=== PATIENT | female | born 1935 | race Caucasian/White ===

== ENCOUNTER 2018-04-27 12:17 | Emergency (ER) | payer MEDICARE ==
--- NOTE | 2018-04-27 13:51 | ED ---
General Adult HPI - General Chief complaint: Weakness Stated complaint: Weakness, Fall Time Seen by Provider: 04/27/18 13:31 Source: patient, family, RN notes reviewed Mode of arrival: ambulatory Limitations: no limitations - History of Present Illness Initial comments: Patient is a pleasant 82-year-old female presenting to the emergency department with frequent falls. Falls have been occurring over the past couple months, more so this past week. Patient got up from standing around 1 week ago and noticed her left foot wasn't working as well. This has been persistent since that time. Patient did dislocate her shoulder approximately 6 weeks ago and had that reduced. Patient does have occasional discomfort in that region. No discomfort at this time. Patient did have some sacral discomfort previously however none at this time. No confusion. Patient did have dark stools this morning. - Related Data Home Medications Medication Instructions Recorded Confirmed Atorvastatin [Lipitor] 10 mg PO HS 04/27/18 04/27/18 Folic Acid 1 mg PO DAILY 04/27/18 04/27/18 Losartan Potassium [Cozaar] 50 mg PO DAILY 04/27/18 04/27/18 Methotrexate Sodium [Methotrexate] 12.5 mg PO TU 04/27/18 04/27/18 amLODIPine [Norvasc] 10 mg PO DAILY 04/27/18 04/27/18 Previous Rx's Medication Instructions Recorded Azithromycin [Zithromax Z-pack] 250 mg PO DIRECTED #6 tab 04/27/18 Allergies Allergy/AdvReac Type Severity Reaction Status Date / Time Sulfa (Sulfonamide Allergy Rash/Hives Verified 04/27/18 13:53 Antibiotics) Review of Systems ROS Statement: Those systems with pertinent positive or pertinent negative responses have been documented in the HPI. ROS Other: All systems not noted in ROS Statement are negative. Constitutional: Denies: fever Eyes: Denies: eye pain ENT: Denies: ear pain Respiratory: Denies: cough Cardiovascular: Denies: chest pain Endocrine: Denies: fatigue Gastrointestinal: Denies: abdominal pain Genitourinary: Denies: dysuria Musculoskeletal: Reports: as per HPI Skin: Denies: rash Neurological: Reports: as per HPI Past Medical History Past Medical History: Hypertension History of Any Multi-Drug Resistant Organisms: None Reported Past Surgical History: No Surgical Hx Reported Past Psychological History: No Psychological Hx Reported Smoking Status: Never smoker Past Alcohol Use History: Rare Past Drug Use History: None Reported General Exam Limitations: no limitations General appearance: alert, in no apparent distress Head exam: Present: atraumatic, normocephalic Eye exam: Present: normal appearance, PERRL, EOMI. Absent: nystagmus ENT exam: Present: normal oropharynx Neck exam: Present: normal inspection. Absent: tenderness Respiratory exam: Present: normal lung sounds bilaterally Cardiovascular Exam: Present: regular rate, normal rhythm Expanded Peripheral pulses: 2+: Radial (R), Radial (L), Posterior Tibialis (R), Posterior Tibialis (L), Dorsalis Pedis (R), Dorsalis Pedis (L) GI/Abdominal exam: Present: soft. Absent: distended, tenderness Extremities exam: Present: normal inspection, full ROM. Absent: tenderness Neurological exam: Present: alert, oriented X3, CN II-XII intact Expanded Neurological exam: Present: protecting the airway Patient oriented to: Present: person, place, time Speech: Present: fluid speech Cranial nerves: EOM's Intact: Normal Sensory exam: Upper Extremity Light Touch: Normal, Lower Extremity Light Touch: Normal Motor strength exam: RUE: 5, LUE: 5, RLE: 5, LLE: 4 (Patient has weakness with left foot dorsiflexion only. No weakness with leg lift or plantar flexion) Eye Response: (4) open spontaneously Motor Response: (6) obeys commands Verbal Response: (5) oriented Psychiatric exam: Present: normal affect, normal mood Skin exam: Present: normal color Course Vital Signs 04/27/18 04/27/18 04/27/18 12:22 13:50 14:59 Temperature 98.2 F Pulse Rate 89 74 70 Respiratory 18 15 18 Rate Blood Pressure 157/76 130/71 139/75 O2 Sat by Pulse 98 95 97 Oximetry EKG Findings - EKG Comments: EKG Findings:: Normal sinus rhythm 78. RI 176. QRS 88. QT 368. QTC 419. Normal axis. LVH. No acute ST change. Medical Decision Making - Medical Decision Making Case was discussed with Dr. Allan who felt patient could be managed as an outpatient secondary to symptoms present for the past week. Patient reevaluated and updated. Patient states she does have an appointment tomorrow with orthopedics and will keep this. Patient is also advised to follow-up with her primary care physician. Patient will be treated for possible pneumonia and is advised will also need repeat follow-up chest x-ray. - Lab Data Result diagrams: 04/27/18 13:15 04/27/18 13:15 Lab Results 04/27/18 04/27/18 04/27/18 Range/Units 13:15 13:15 13:15 WBC 14.3 H (3.8-10.6) k/uL RBC 4.45 (3.80-5.40) m/uL Hgb 12.5 (11.4-16.0) gm/dL Hct 39.1 (34.0-46.0) % MCV 87.9 (80.0-100.0) fL MCH 28.1 (25.0-35.0) pg MCHC 32.0 (31.0-37.0) g/dL RDW 16.1 H (11.5-15.5) % Plt Count 328 (150-450) k/uL Neutrophils % 87 % Lymphocytes % 6 % Monocytes % 5 % Eosinophils % 1 % Basophils % 0 % Neutrophils # 12.5 H (1.3-7.7) k/uL Lymphocytes # 0.8 L (1.0-4.8) k/uL Monocytes # 0.8 (0-1.0) k/uL Eosinophils # 0.1 (0-0.7) k/uL Basophils # 0.0 (0-0.2) k/uL Anisocytosis Slight PT (9.0-12.0) sec INR (<1.2) APTT (22.0-30.0) sec Sodium 138 (137-145) mmol/L Potassium 4.5 (3.5-5.1) mmol/L Chloride 104 (98-107) mmol/L Carbon Dioxide 28 (22-30) mmol/L Anion Gap 6 mmol/L BUN 18 H (7-17) mg/dL Creatinine 0.84 (0.52-1.04) mg/dL Est GFR (CKD-EPI)AfAm 76 (>60 ml/min/1.73 sqM) Est GFR (CKD-EPI)NonAf 66 (>60 ml/min/1.73 sqM) Glucose 99 (74-99) mg/dL Calcium 9.8 (8.4-10.2) mg/dL Total Bilirubin 0.5 (0.2-1.3) mg/dL AST 23 (14-36) U/L ALT 17 (9-52) U/L Alkaline Phosphatase 90 (38-126) U/L Total Creatine Kinase 26 L (30-135) U/L CK-MB (CK-2) 1.1 (0.0-2.4) ng/mL CK-MB (CK-2) Rel Index 4.2 Troponin I <0.012 (0.000-0.034) ng/mL Total Protein 5.9 L (6.3-8.2) g/dL Albumin 2.8 L (3.5-5.0) g/dL Stool Occult Blood (Negative) 04/27/18 04/27/18 Range/Units 13:15 13:50 WBC (3.8-10.6) k/uL RBC (3.80-5.40) m/uL Hgb (11.4-16.0) gm/dL Hct (34.0-46.0) % MCV (80.0-100.0) fL MCH (25.0-35.0) pg MCHC (31.0-37.0) g/dL RDW (11.5-15.5) % Plt Count (150-450) k/uL Neutrophils % % Lymphocytes % % Monocytes % % Eosinophils % % Basophils % % Neutrophils # (1.3-7.7) k/uL Lymphocytes # (1.0-4.8) k/uL Monocytes # (0-1.0) k/uL Eosinophils # (0-0.7) k/uL Basophils # (0-0.2) k/uL Anisocytosis PT 9.4 (9.0-12.0) sec INR 0.9 (<1.2) APTT 22.5 (22.0-30.0) sec Sodium (137-145) mmol/L Potassium (3.5-5.1) mmol/L Chloride (98-107) mmol/L Carbon Dioxide (22-30) mmol/L Anion Gap mmol/L BUN (7-17) mg/dL Creatinine (0.52-1.04) mg/dL Est GFR (CKD-EPI)AfAm (>60 ml/min/1.73 sqM) Est GFR (CKD-EPI)NonAf (>60 ml/min/1.73 sqM) Glucose (74-99) mg/dL Calcium (8.4-10.2) mg/dL Total Bilirubin (0.2-1.3) mg/dL AST (14-36) U/L ALT (9-52) U/L Alkaline Phosphatase (38-126) U/L Total Creatine Kinase (30-135) U/L CK-MB (CK-2) (0.0-2.4) ng/mL CK-MB (CK-2) Rel Index Troponin I (0.000-0.034) ng/mL Total Protein (6.3-8.2) g/dL Albumin (3.5-5.0) g/dL Stool Occult Blood Negative (Negative) - Radiology Data Radiology results: report reviewed (Computed tomography scan of the brain shows age-related atrophy and probable chronic small vessel ischemia), image reviewed (Lumbar spine x-ray shows degenerative changes. No acute osseous abnormality. Chest x-ray shows left lower lobe atelectasis or infiltrate.) Disposition Clinical Impression: Foot drop Disposition: HOME SELF-CARE Condition: Stable Instructions: Foot Drop (ED), Pneumonia (ED) Additional Instructions: Please follow-up tomorrow with orthopedics as scheduled. Please also follow-up with your primary care physician in the next day or 2 for recheck. Return for difficulty in breathing, cough, fevers, increased weakness, change in mental status, worsening or change in symptoms or other concerns. Prescriptions: Azithromycin [Zithromax Z-pack] 250 mg PO DIRECTED #6 tab Is patient prescribed a controlled substance at d/c from ED?: No Referrals: Nadeem Salmeron MD [Primary Care Provider] - 1-2 days Joseph Farfan MD [STAFF PHYSICIAN] - 1-2 days Time of Disposition: 15:37
[2018-04-27 14:18] LABS: Anisocytosis Slight; Basophils % (A) 0 %; Eosinophils # (A) 0.1 k/uL (0-0.7); Eosinophils % (A) 1 %; HCT 39.1 % (34.0-46.0); HGB 12.5 gm/dL (11.4-16.0); Lymphocytes # (A) 0.8 k/uL (1.0-4.8); Lymphocytes % (A) 6 %; MCH 28.1 pg (25.0-35.0); MCV 87.9 fL (80.0-100.0); Mean Platelet Volume 6.3; Monocytes # (A) 0.8 k/uL (0-1.0); Monocytes % (A) 5 %; Neutrophils # (A) 12.5 k/uL (1.3-7.7); Neutrophils % (A) 87 %; Platelet Count 328 k/uL (150-450); RBC 4.45 m/uL (3.80-5.40); RDW 16.1 % (11.5-15.5); WBC 14.3 k/uL (3.8-10.6)
--- NOTE | 2018-04-27 14:26 | XR ---
EXAMINATION TYPE: XR lumbosacral spine min 4V DATE OF EXAM: 04/27/2018 COMPARISON: None HISTORY: Pain fall one week prior TECHNIQUE: Five-view lumbar spine FINDINGS: There 5 lumbar-type vertebral bodies. The pedicles are intact. There is loss of disc height L2-3. Facet degenerative changes present L4-5 bilaterally. Narrowing of the L4-5 L5-S1 disc space is present. Posterior disc space narrowing may be present L3-4. IMPRESSION: 1. Degenerative disc changes through the lumbar spine. 2. No acute osseous abnormality radiographically apparent.
--- NOTE | 2018-04-27 14:27 | XR ---
EXAMINATION TYPE: XR chest 2V DATE OF EXAM: 04/27/2018 COMPARISON: None INDICATION: Fall one week prior, chest pain TECHNIQUE: Frontal and lateral views of the chest are obtained. FINDINGS: The heart size is normal. The pulmonary vasculature is normal. There is an infiltrate along the lateral left lung. There is elevation left diaphragm. No pneumothora x is evident. No displaced rib fractures are identified.. IMPRESSION: 1. Left lower lobe atelectasis and/or pneumonia.
[2018-04-27 14:28] LABS: INR 0.9 (<1.2); Partial Thromboplastin Time 22.5 sec (22.0-30.0); Prothrombin Time 9.4 sec (9.0-12.0)
[2018-04-27 14:40] LABS: Creatine Kinase 26 U/L (30-135)
--- NOTE | 2018-04-27 14:40 | CT ---
EXAMINATION TYPE: CT brain wo con DATE OF EXAM: 04/27/2018 COMPARISON: None HISTORY: Leg weakness CT DLP: 1027.4 mGycm Automated exposure control for dose reduction was used. Helical imaging through the brain. FINDINGS: Periventricular white matter shows patchy low attenuation. There is no evident hemorrhage or hydrocep halus. Cortical atrophy is likely age-related. Calvarium is intact. Paranasal sinuses and mastoid air cells as visualized are normal. There are cerebral vascular calcifications. IMPRESSION: AGE-RELATED CHANGES OF ATROPHY AND PROBABLE CHRONIC SMALL VESSEL ISCHEMIA, MRI MAY BE OF BENEFIT.
[2018-04-27 14:50] LABS: Creatine Kinase MB 1.1 ng/mL (0.0-2.4)
[2018-04-27 14:51] LABS: Albumin 2.8 g/dL (3.5-5.0); Calcium 9.8 mg/dL (8.4-10.2); Potassium 4.5 mmol/L (3.5-5.1); Total Bilirubin 0.5 mg/dL (0.2-1.3); Total Protein 5.9 g/dL (6.3-8.2)
[2018-04-27 14:52] LABS: Troponin I <0.012 ng/mL (0.000-0.034)
[2018-04-27 15:51] VITALS: BP 133/78; PULSE 75; RESP 16; TEMP 98.3
[2018-04-27 15:53] LABS: Appearance,Urine Clear (Clear); Bilirubin,Urine Negative (Negative); Blood,Urine Negative (Negative); Color,Urine Yellow; Glucose,Urine (UA) Negative (Negative); Ketones,Urine Negative (Negative); Leukocyte Esterase,Urine Negative (Negative); Nitrite,Urine Negative (Negative); Protein,Urine Negative (Negative); Specific Gravity,Urine 1.014 (1.001-1.035); Urobilinogen,Urine <2.0 mg/dL (<2.0)
== END 2018-04-27 16:00 | disposition home or self-care (01) ==
LOC: EC 12:17
DX: M21.372 Foot drop, left foot (principal); R29.6 Repeated falls; I10 Essential (primary) hypertension; Z79.899 Other long term (current) drug therapy; Z88.2 Allergy status to sulfonamides
CPT/HCPCS: 36415; 70450; 71046; 72110; 80053; 81003; 82272; 82550; 82553; 84484; 85025; 85610; 85730; 93005; 99285

== ENCOUNTER → 2019-10-29 | Outpatient (CLI) | payer MEDICARE ==
[2019-10-29 09:31] LABS: HCT 40.6 % (34.0-46.0); HGB 12.6 gm/dL (11.4-16.0); MCH 27.3 pg (25.0-35.0); MCHC 31.1 g/dL (31.0-37.0); MCV 87.7 fL (80.0-100.0); Mean Platelet Volume 6.4; Platelet Count 511 k/uL (150-450); RBC 4.63 m/uL (3.80-5.40); RDW 13.7 % (11.5-15.5); WBC 8.4 k/uL (3.8-10.6)
[2019-10-29 09:39] LABS: INR 0.9 (<1.2); Partial Thromboplastin Time 22.7 sec (22.0-30.0); Prothrombin Time 9.5 sec (9.0-12.0)
[2019-10-29 09:42] LABS: Albumin 3.7 g/dL (3.5-5.0); Calcium 10.4 mg/dL (8.4-10.2); Potassium 4.1 mmol/L (3.5-5.1); Total Bilirubin 0.5 mg/dL (0.2-1.3); Total Protein 7.6 g/dL (6.3-8.2)
[2019-10-29 09:48] LABS: Appearance,Urine Clear (Clear); Bacteria,Urine Rare /hpf; Bilirubin,Urine Negative (Negative); Blood,Urine Negative (Negative); Color,Urine Yellow; Glucose,Urine (UA) Negative (Negative); Ketones,Urine Negative (Negative); Leukocyte Esterase,Urine Large (Negative); Mucus,Urine Rare /hpf; Nitrite,Urine Negative (Negative); Protein,Urine Negative (Negative); RBC,Urine 1 /hpf (0-5); Specific Gravity,Urine 1.016 (1.001-1.035); Squamous Epithelial Cell,Urine 3 /hpf (0-4); Urobilinogen,Urine <2.0 mg/dL (<2.0); WBC,Urine 4 /hpf (0-5)
== END | disposition home or self-care (01) ==
LOC: LABPAT 08:51
PROVIDERS: ATTEND Orthopaedic Surgery
DX: Z01.818 Encounter for other preprocedural examination (principal); Z79.01 Long term (current) use of anticoagulants; Z01.812 Encounter for preprocedural laboratory examination; U07.1 COVID-19
CPT/HCPCS: 80053; 85027; 85610; 85730; 81001; 87070; 36415; U0003

== ENCOUNTER 2019-11-08 05:30 | Day surgery (SDC) | payer MEDICARE ==
[2019-11-04 11:48] VITALS: BMI 25.3
[~2019-11-08 05:30] MED LIST: ACETAMINOPHEN TAB 500 MG TAB PO ONE; GABAPENTIN 300 MG CAP PO ONE; MELOXICAM 7.5 MG TAB PO ONE; ONDANSETRON 4 MG/2 ML VIAL IVP ONE; TRANEXAMIC ACID 1,000 MG in SODIUM CHLORIDE 0.9% 100 ML IVPB ONE
[2019-11-08] MEDS ORDERED: DEXAMETHASONE SOD PHOSPHATE 10 MG/ML 1 ML VIAL IV ONE (05:56)
[2019-11-08] MEDS ORDERED: ONDANSETRON 4 MG/2 ML VIAL IVP ONE (05:56)
[2019-11-08] MEDS ORDERED: MIDAZOLAM 2 MG/2 ML VIAL IV PRN (05:56)
[2019-11-08] MEDS ORDERED: HYDROmorphone 0.5 MG/0.5 ML SYRINGE IVP PRN ×4 (05:56→09:19)
[2019-11-08] MEDS: LACTATED RINGERS 1,000 ML IV SCH (06:09)
[2019-11-08 06:18] LABS: Glucose,Whole Blood 79 mg/dL (75-99)
[2019-11-08] MEDS ORDERED: fentaNYL (PF) 50 MCG/ML 2 ML AMP IV ONE (06:40)
[2019-11-08] MEDS ORDERED: SODIUM CHLORIDE 0.9% 100 ML BAG ONE (07:06)
[2019-11-08] MEDS ORDERED: MIDAZOLAM 2 MG/2 ML VIAL ONE (07:06)
[2019-11-08] MEDS ORDERED: PROPOFOL 10 MG/ML 20 ML VIAL IV ONE (07:06)
[2019-11-08] MEDS ORDERED: TRANEXAMIC ACID 1,000 MG/10 ML VIAL ONE (07:06)
[2019-11-08] MEDS: ROPIVACAINE 246.25 MG, EPINEPHrine 0.5 MG, KETOROLAC 30 MG, cloNIDine HCL/PF 80 MCG, WA... MISCELLANE ONE ×10 (07:48→08:30)
[2019-11-08] MEDS ORDERED: ceFAZolin 3,000 MG in SODIUM CHLORIDE 0.9% IRRIGATIO 3,000 ML IRRIGATION ONE (07:49)
[2019-11-08] MEDS ORDERED: ROPIVACAINE 0.2%-NS ON-Q PUMP 1,090 MG, EMPTY PAIN BALL 1 EACH MISCELLANE PRN (08:20)
--- NOTE | 2019-11-08 08:20 | P.ANPRN ---
Procedure Note - Anesthesia - Nerve Block Performed Left Adductor Canal Infusion Date of Procedure: 11/08/19 Procedure Start Time: 06:39 Procedure Stop Time: 07:00 Location of Patient: PreOp Indication: Acute Post-Operative Pain, Requested by Surgeon Sedation Type: Sedate with meaningful contact maintained Preparation: Sterile Prep, Sterile Dressing Position: Supine Catheter: Indwelling Needle Types: Pajunk Needle Gauge: 21 Ultrasound used to visualize needle placement: Yes Ultrasound used to observe medication spread: Yes Blood Aspirated: No Pain Paresthesia on Injection Noted: No Resistance on Injection: Normal Image Stored and Saved: Yes Events: Uneventful and Well Tolerated (Ropivacaine 0.5% 20 mls)
--- NOTE | 2019-11-08 08:57 | P.OP ---
Date of Procedure: 11/08/19 Procedure(s) Performed: PREOPERATIVE DIAGNOSIS: Left knee severe osteoarthritis with genu varum POSTOPERATIVE DIAGNOSIS: Left knee severe osteoarthritis with genu varum OPERATION: Left knee cemented total replacement arthroplasty. ANESTHESIA: Spinal ESTIMATED BLOOD LOSS: 50 ml. NEEDLE SETTER: Hernan Jonas PA-C (assistance with: patient positioning, retraction, exposure, hemostasis, leg positioning, implantation, irrigation, closure, dressing) COMPLICATIONS: None apparent. COMPONENTS IMPLANTED: Journey II total knee system from [facility] INDICATIONS: Mrs. Braun is an 83 year old female with a history of left knee osteoarthritis. The patient's knee is end-stage, and conservative management has failed. The operation of knee replacement has been discussed at length in the office, as well as potential risks and complications. These are inclusive of, but not limited to: bleeding, infection, scarring, discomfort, blood vessel and nerve damage, need for further surgery, failure to relieve symptoms, persistence, recurrence, or worsening of problems, loosening, dislocation, wear, blood clot, pulmonary embolism, , gait dysfunction, stiffness, and other risks as discussed in the office. The patient elects to proceed and the consent form has been signed. PROCEDURE: The patient was taken to the operating room and positioned on the operating room table in the supine position. Anesthesia was initiated. Care was taken to make sure that all pressure points were adequately padded. The operative lower extremity was prepped and draped in the usual aseptic fashion using ChloraPrep. Ioban drape was used for the case and the patient received intravenous antibiotics within one hour of the incision. A pneumotourniquet and leg pierre were used for the case. The limb was exsanguinated with an Esmarch bandage and the tourniquet was inflated to 350 mmHg. Time-out was called confirming the patient's identity, side, procedure and administration of antibiotics and tranexamic acid. The incision was then created midline directly over the left knee, carried down through skin and into the subcutaneous tissues and down to fascia. Full thickness subcutaneous medial flap was developed. Medial parapatellar arthrotomy was performed and the interior of the knee was inspected. There was end-stage osteoarthritis of the knee with a mild to moderate genu varum type deformity. The fat pad was excised and proximal medial release on the tibia was completed using meticulous dissection and a curved osteotome. The anterior cruciate ligament was taken down. Note was made of significant attrition of the anterior and significant degenerative appearance of the cruciate ligaments. The exposure was excellent. The knee was flexed 90 degrees and the patella was everted. The [employer] pre- made distal cutting block was attached and pinned into position. The planned cut was analyzed visually and with the alignment pancho and found to be satisfactory without the need for any adjustment. The oscillating saw was then used to make the distal femoral cut and make the alignment holes for the 5 in 1 block. This cut was confirmed to be flat with the flat end of an osteotome. The 5 in 1 block was then used to create the anterior posterior condylar resections and the chamfer cuts. The retractors were placed around the tibia and the tibial surface was addressed. The [employer] pre-made guide was placed onto the exposed tibial surface and pinned into position to cassie the rotational alignment. The alignment of the guide was checked for depth of plannned resection, slope, and varus valgus. Guide was confirmed to be in good position and the tibial cut was then created with protection of the posterior neurovascular structures and the collateral ligaments. The tibial cut surface was removed and sized. Spacer block technique was then used to confirm that the flexion and extension gaps were equal. Soft tissue releases and adjustment of the tibial and/or femoral cuts were made, as necessary, until the gaps were equal. This included release of the posterior cruciate ligament, which was excessively tight in this patient. Prior to placing trial components, anesthetic solution consisting of ropivicaine with epinephrine, ketorolac, and clonidine was injected carefully and methodically in a grid pattern using aspiration technique into the soft tissue around the knee circumferentially, starting with the deeper tissues first and progressing to fascia, and then finally the skin/subcutaneous tissue. Particular care was taken when injecting the posterior capsule, with avoidance of the midline posterior area. The trial components were inserted. The tibial tray was allowed to self center and the patella was noted to track very well. The position of the tibial component was marked and noted to be nearly exactly aligned with the pre-drilled holes from the [employer] guide. The tibia was then finished for a stemmed tibial component. Patellar resurfacing was performed using a reamer. The size of the required patellar component was estimated and the patellar surface was then reamed down to a residual thickness which would recreate the [place] thickness with the component. The exact placement of the patellar component was adjusted for position based on preoperative x-rays and intraoperative findings. Trial components were removed and the cut surfaces of the bone were pulse lavaged thoroughly and dried. Cement was mixed on the back table and applied to the final components. Cement was then applied to the tibial surface and pressurized into the surface using finger pressurization technique. The tibial component was then applied and excess cement was removed after it was impacted securely and noted to be flush with the cut surface. In similar fashion, the cement was applied to the cut femoral surface, pressurized in using finger pressurization and the component was impacted into place. Excess cement was removed. The polyethylene spacer was then implanted and locked into position. The patellar component was then applied in similar technique and a patellar clamp was used to hold the patella in place as the cement hardened. Once the cement had fully hardened, the knee was reinspected. Any other cement extrusion was removed and final kinematic testing showed range of motion from 0 to 130 degrees with excellent stability, both medially and laterally and appropriate alignment of the leg. Patellar tracking was excellent. The knee was then thoroughly pulse lavaged with normal saline. The tourniquet was deflated and hemostasis was obtained with electrocautery and IV tranexamic acid, 1 g given at the start of the operation and 1 g at the start of closure. Closure was with #2 Ethibond in the fascia/capsule and supplemented with #2 Quill, 2-0 Vicryl suture was used for the subcutaneous tissues and 3-0 Quill for the skin. Dermabond/Steri-Strips were then applied. A lightly compressive dressing was applied using Webril and an César wrap. The patient was then transferred to stretcher and taken to the recovery room in stable condition. Sponge and needle counts were correct.
[2019-11-08] MEDS ORDERED: NALOXONE 0.4 MG/ML 1 ML VIAL IV PRN (09:19)
[2019-11-08] MEDS ORDERED: HYDROcodone/APAP 5-325MG 1 EACH TAB PO PRN (09:19)
[2019-11-08] MEDS ORDERED: ONDANSETRON 4 MG/2 ML VIAL IVP PRN (09:19)
--- NOTE | 2019-11-08 14:41 | XR ---
EXAMINATION TYPE: XR knee limited LT DATE OF EXAM: 11/08/2019 CLINICAL HISTORY: Left knee pain and arthritis status post total knee replacement. TECHNIQUE: Portable AP and crosstable lateral views of the left knee are obtained immediately postop eratively. COMPARISON: None FINDINGS: [place] osseous structures are demineralized. Metallic hardware from total left knee arthrop lasty is seen and appears satisfactory in alignment and position. There is evidence of recent surger y with diffuse subcutaneous gas and soft tissue swelling noted. IMPRESSION: METALLIC HARDWARE FROM TOTAL LEFT KNEE ARTHROPLASTY IS SATISFACTORY IN ALIGNMENT.
[2019-11-08] MEDS: ASPIRIN 81 MG PO SCH (20:02)
[2019-11-08] MEDS: HYDROcodone/APAP 5-325MG 1 EACH TAB PO PRN (20:59)
[2019-11-08] MEDS ORDERED: SENNOSIDES-DOCUSATE SODIUM 1 EACH TAB PO SCH (21:00)
--- NOTE | 2019-11-09 00:43 | CONS ---
CONSULTATION DATE OF SERVICE: 11/08/2019 REASON FOR CONSULTATION: Advice regarding hypertension and other medical issues requested by Dr. Ferro. HISTORY OF PRESENT ILLNESS: This 83-year-old woman with a past medical history of DJD, history of hypertension, rheumatoid arthritis, being followed by Dr. Primo Salmeron in the outpatient setting underwent left total knee joint arthroplasty by Dr. Ferro. The patient tolerated the procedure well. There is no history of chest pain. No history of palpitation, headache, loss of consciousness or seizures at this time. PAST MEDICAL HISTORY: Hypertension, history of DJD, history of rheumatoid arthritis, recent prednisone. MEDICATIONS: Medications are: 1. Simponi infusions. 2. Norvasc 10 mg daily. 3. Cozaar 50 mg p.o. daily. 4. Methotrexate 12.5 mg weekly. ALLERGIES: SULFA. FAMILY HISTORY: No history of heart disease or strokes in the family. SOCIAL HISTORY: No history of smoking. No history of alcohol intake. REVIEW OF SYSTEMS: ENT: No diminished hearing or diminished vision. CARDIOVASCULAR SYSTEM: No angina RESPIRATORY SYSTEM: No cough or hemoptysis. GI: No nausea. : No dysuria. NERVOUS SYSTEM: No numbness or weakness. ALLERGY/IMMUNOLOGY: No asthma or hay fever. MUSCULOSKELETAL: As mentioned earlier. HEMATOLOGY: No history anemia. RHEUMATOLOGY: As mentioned earlier. PSYCHIATRY: Negative. PHYSICAL EXAMINATION: The patient is alert and oriented x3. Pulse 85, blood pressure 152/72, respirations 16, temperature 97.7, pulse ox 96% on room air. HEENT: Conjunctivae normal. Oral mucosa moist. NECK: No jugular venous distention. No carotid bruit. No lymph node enlargement. CARDIOVASCULAR: S1, S2 muffled. RESPIRATORY: Breath sounds diminished in the bases. No rhonchi. No crackles. ABDOMEN: Soft, nontender. LEGS: Status post left knee arthroplasty. NERVOUS SYSTEM: No focal deficits. LABS: The preop labs are platelets are 511. Otherwise, coags are normal. Chemistry is also within normal limits. ASSESSMENT: 1. Status post left total knee joint arthroplasty for severe degenerative joint disease. 2. Hypertension. 3. History of rheumatoid arthritis. 4. History of recent prednisone usage. 5. Gait dysfunction. 6. History of dislocated shoulder. 7. FULL CODE. RECOMMENDATIONS AND DISCUSSION: This 83-year-old woman who presented with multiple medical issues, we will monitor the patient closely. Continue the current medications. Continue symptomatic treatment. Otherwise, resume the home medications, DVT prophylaxis. Monitor closely. Otherwise recommend close followup with primary physician after discharge. We will follow the patient closely. Thank you Dr. Ferro for letting us participate in the care of this patient. KRISTINE / NICA: [id number] /
[2019-11-09] MEDS: HYDROcodone/APAP 5-325MG 1 EACH TAB PO PRN (02:13)
[2019-11-09] MEDS: LACTATED RINGERS 1,000 ML IV SCH (04:58)
[2019-11-09 06:37] LABS: Basophils % (A) 0 %; Eosinophils % (A) 0 %; HGB 11.3 gm/dL (11.4-16.0); Lymphocytes % (A) 7 %; MCH 28.3 pg (25.0-35.0); MCHC 31.4 g/dL (31.0-37.0); MCV 89.9 fL (80.0-100.0); Mean Platelet Volume 6.6; Monocytes # (A) 0.9 k/uL (0-1.0); Monocytes % (A) 7 %; Neutrophils # (A) 11.2 k/uL (1.3-7.7); Neutrophils % (A) 85 %; Platelet Count 261 k/uL (150-450); RBC 4.01 m/uL (3.80-5.40); RDW 14.6 % (11.5-15.5); WBC 13.3 k/uL (3.8-10.6)
--- NOTE | 2019-11-09 06:51 | P.PN ---
Progress Note - Text Progress Note Date: 11/09/19 The patient is doing well status post total knee replacement. Pain is well con trolled by a combination of local anesthetic infusion through the adductor canal catheter and oral analgesics. There are no signs of infection around the catheter skin entry site. The local anesthetic infusion will be continued as per protocol.
[2019-11-09 06:58] VITALS: RESP 18
[2019-11-09] MEDS: ASPIRIN 81 MG PO SCH (08:11)
[2019-11-09] MEDS ORDERED: amLODIPine 10 MG TAB PO SCH (09:00)
[2019-11-09] MEDS ORDERED: LOSARTAN 50 MG TAB PO SCH (09:00)
[2019-11-09 11:49] LABS: Glucose,Whole Blood 108 mg/dL (75-99)
[2019-11-09 11:52] VITALS: BP 139/72; PULSE 74; TEMP 97.5
[2019-11-09 11:58] LABS: Albumin 2.6 g/dL (3.5-5.0); Calcium 9.2 mg/dL (8.4-10.2); Potassium 4.4 mmol/L (3.5-5.1); Total Bilirubin 0.5 mg/dL (0.2-1.3); Total Protein 5.5 g/dL (6.3-8.2)
[2019-11-09 12:47] LABS: Albumin 2.9 g/dL (3.5-5.0); Calcium 9.1 mg/dL (8.4-10.2); Potassium 3.7 mmol/L (3.5-5.1); Total Bilirubin 0.6 mg/dL (0.2-1.3); Total Protein 5.9 g/dL (6.3-8.2)
--- NOTE | 2019-11-09 23:11 | PN ---
PROGRESS NOTE DATE OF SERVICE: 11/09/2019 This 83-year-old woman who was admitted after left knee arthroplasty is complaining of some dizziness. No chest pain. No palpitations. Orthopedics is planning discharge. No fever. No cough. PHYSICAL EXAMINATION: Alert and oriented x3. Pulse 74, blood pressure 137/69, respiration 18, temperature 97.4, pulse ox 96% on room air. HEENT: Conjunctivae normal. NECK: No jugular venous distention. CARDIOVASCULAR SYSTEM: S1, S2 muffled. RESPIRATORY SYSTEM: Breath sounds diminished at the bases. No rhonchi. No crackles. ABDOMEN: Soft, non-tender. LEGS: Status post surgery. NERVOUS SYSTEM: No focal deficit. LABS: Sodium is 134. Other labs are noted. Blood pressure: No orthostatic changes. ASSESSMENT: 1. Status post left total knee arthroplasty for severe degenerative joint disease. 2. Hypertension. 3. History of rheumatoid arthritis. 4. History of recent prednisone usage. 5. Gait dysfunction. 6. History of dislocated shoulder. 7. FULL CODE. RECOMMENDATIONS AND DISCUSSION: I recommend to continue current medications, continue with the monitoring, symptomatic treatment. Resume the home medications. Rest of the recommendations per Orthopedic Surgery. Also recommended close monitoring of blood pressure and to closely follow with the primary physician in a few days. Further recommendations to follow. MMODL / IJN: [id number] /
--- NOTE | 2019-11-10 17:10 | P.DS ---
Providers Expected date of discharge: 11/09/19 Attending physician: Tesfaye Ferro Consults: 11/08/19 09:24 Consult Physician Routine Consulting Provider: Nadeem Salmeron Consult Reason/Comments: Medical management Do you want consulting provider notified?: Yes 11/08/19 18:00 Consult Physician Routine Consulting Provider: Mercedes Zaman Consult Reason/Comments: MEDICAL MANAGEMENT POST TOTAL LEFT KNEE Do you want consulting provider notified?: Already Contacted Primary care physician: Nadeem Salmeron MD Hospital Course: This is a 83-year-old female who was last seen with complaint of continued left knee pain. The patient has a known history of degenerative arthritis of the left knee and presents to discuss surgical options with Dr. Ferro. After discussion and consideration the patient elects to proceed with total left knee arthroplasty. The patient is seen preoperatively by Dr. Pillai and Dr. Salmeron and cleared for surgery. The patient is admitted to [facility] for total left knee arthroplasty. The procedures performed without complication or sequelae. Vital signs are stable at discharge. Labs are stable at discharge. The patient is examined bedside the morning of discharge. She states she feels well today and the pain in her left knee is well controlled. She has been ambulating well with a walker with minimal assistance. Per nursing, the patient did become lightheaded after my examination, although internal medicine ordered a stat CMP, results were baseline. Orthostatics were also within normal limits. The patient was cleared for discharge medically. The patient's daughter will also be seen with the patient during her recovery. The patient denies chest pain, shortness of breath, nausea, vomiting, fevers, chills. She denies numbness or tingling in the left lower extremity. On examination, the patient is sitting up in bed in no apparent distress. She is alert and oriented 3. On inspection of the left knee, there is a clean, dry, intact Optifoam dressing in place. There is no drainage or bleeding through the dressing. Patient has good strength and range of motion of the left ankle. Dorsalis pedis pulse +2. The left lower extremity is warm and well perfused with brisk capillary refill distally. Capsular soft and nontender to palpation bilaterally. The patient is discharged to home on postop day #1 pending medical clearance. Please see orders and refer to the med rec for accurate list of medications. Patient Condition at Discharge: Fair Plan - Discharge Summary Discharge Rx Participant: Yes New Discharge Prescriptions: New Hydrocodone/Acetaminophen [[place] 5-325] 1 tab PO Q8H PRN #28 tab PRN Reason: Pain Aspirin 81 mg PO BID 30 Days #60 chewable No Action Methotrexate Sodium [Methotrexate] 12.5 mg PO WEEKLY amLODIPine [Norvasc] 10 mg PO DAILY Losartan [Cozaar] 50 mg PO DAILY Simponi Infusions 1 dose IV DIRECTED Discharge Medication List Methotrexate Sodium [Methotrexate] 12.5 mg PO WEEKLY 04/27/18 [History] amLODIPine [Norvasc] 10 mg PO DAILY 04/27/18 [History] Losartan [Cozaar] 50 mg PO DAILY 11/04/19 [History] Simponi Infusions 1 dose IV DIRECTED 11/04/19 [History] Aspirin 81 mg PO BID 30 Days #60 chewable 11/09/19 [Rx] Hydrocodone/Acetaminophen [[place] 5-325] 1 tab PO Q8H PRN #28 tab 11/09/19 [Rx] Follow up Appointment(s)/Referral(s): Nadeem Salmeron MD [Primary Care Provider] - 11/17/19 8:45 am (Please wear mask. If you need someone with you please only one. ) Tesfaye Ferro MD [STAFF PHYSICIAN] - 11/24/19 9:45 am Patient Instructions/Handouts: *Surgery [facility] - On-Q Pain Pump Discharge Instructions, Precautions after Total Joint Replacement Surgery (DC), Knee Replacement (DC) Activity/Diet/Wound Care/Special Instructions: Weight bear as tolerated on operative leg with a walker. Keep Optifoam dressing in place for 10 days. May shower with dressing on. Take medications as prescribed. Ice and elevate operative knee. Follow-up in the office with Dr. Ferro in 2 weeks. Call office with any questions or concerns, Discharge Disposition: HOME WITH HOME HEALTH SERVICES
== END 2019-11-09 13:31 | disposition home health service (06) ==
LOC: OR 05:30 → 6PED 09:09 → OR 11-09 13:31
PROVIDERS: ATTEND Orthopaedic Surgery
DX: M17.12 Unilateral primary osteoarthritis, left knee (principal); M21.162 Varus deformity, not elsewhere classified, left knee; R42 Dizziness and giddiness; I10 Essential (primary) hypertension; E78.5 Hyperlipidemia, unspecified; M06.9 Rheumatoid arthritis, unspecified; R20.2 Paresthesia of skin; I49.3 Ventricular premature depolarization; R26.9 Unspecified abnormalities of gait and mobility; Z88.2 Allergy status to sulfonamides; Z79.899 Other long term (current) drug therapy; Z97.3 Presence of spectacles and contact lenses; Z98.890 Other specified postprocedural states; Z88.8 Allergy status to other drugs, medicaments and biological substances; Z87.828 Personal history of other (healed) physical injury and trauma
CPT/HCPCS: 27447; 97110; 97161; 97165; 64448; 76942; 80053; 85025; 88300; 73560; C1713; C1776; J2250; J0171; J1100; J0690 ×2; J2405; J3010; J1885; J2795 ×2; J2704; J0735

== ENCOUNTER → 2020-02-21 | Outpatient (CLI) | payer MEDICARE ==
[2020-02-21 11:21] LABS: INR 0.9 (<1.2); Prothrombin Time 9.3 sec (9.0-12.0)
[2020-02-21 11:22] LABS: Partial Thromboplastin Time 24.5 sec (22.0-30.0)
[2020-02-21 11:28] LABS: Albumin 3.6 g/dL (3.5-5.0); Calcium 10.2 mg/dL (8.4-10.2); Potassium 4.2 mmol/L (3.5-5.1); Total Bilirubin 0.5 mg/dL (0.2-1.3); Total Protein 7.1 g/dL (6.3-8.2)
[2020-02-21 11:35] LABS: Appearance,Urine Cloudy (Clear); Bilirubin,Urine Negative (Negative); Blood,Urine Negative (Negative); Calcium Oxalate Crystals,Urine Many /hpf; Color,Urine Yellow; Glucose,Urine (UA) Negative (Negative); Ketones,Urine Negative (Negative); Leukocyte Esterase,Urine Large (Negative); Mucus,Urine Occasional /hpf; Nitrite,Urine Negative (Negative); PH, Urine 5.5 (5.0-8.0); Protein,Urine Trace (Negative); Specific Gravity,Urine 1.024 (1.001-1.035); Squamous Epithelial Cell,Urine 13 /hpf (0-4); Urobilinogen,Urine <2.0 mg/dL (<2.0); WBC,Urine 38 /hpf (0-5)
[2020-02-21 12:12] LABS: Anisocytosis Slight; HCT 38.8 % (34.0-46.0); Hypochromasia Slight; MCH 25.5 pg (25.0-35.0); MCHC 30.9 g/dL (31.0-37.0); MCV 82.8 fL (80.0-100.0); Platelet Count 473 k/uL (150-450); RBC 4.68 m/uL (3.80-5.40); RDW 16.8 % (11.5-15.5); WBC 8.4 k/uL (3.8-10.6)
== END | disposition home or self-care (01) ==
LOC: LABWHC1 09:25
PROVIDERS: ATTEND Orthopaedic Surgery
DX: Z01.818 Encounter for other preprocedural examination (principal); Z79.01 Long term (current) use of anticoagulants; Z01.812 Encounter for preprocedural laboratory examination
CPT/HCPCS: 36415; 80053; 81001; 85027; 85610; 85730; 87070

== ENCOUNTER 2020-02-28 06:05 | Day surgery (SDC) | payer MEDICARE ==
[~2020-02-28 06:05] MED LIST changes: +DEXAMETHASONE SOD PHOSPHATE 10 MG/ML 1 ML VIAL IV ONE; +HYDROmorphone 0.5 MG/0.5 ML SYRINGE IVP PRN; +LACTATED RINGERS 1,000 ML IV SCH; +ROPIVACAINE 246.25 MG, EPINEPHrine 0.5 MG, KETOROLAC 30 MG, cloNIDine HCL/PF 80 MCG, WA... MISCELLANE ONE; +SCOPOLAMINE 1.5MG/72HR PATCH TRANSDERM ONE
[2020-02-28] MEDS ORDERED: MIDAZOLAM 2 MG/2 ML VIAL IV ONE (07:41)
[2020-02-28] MEDS ORDERED: MIDAZOLAM 2 MG/2 ML VIAL ONE (07:52)
[2020-02-28] MEDS ORDERED: fentaNYL (PF) 50 MCG/ML 2 ML AMP ONE (07:52)
[2020-02-28] MEDS ORDERED: TRANEXAMIC ACID 1,000 MG/10 ML VIAL ONE (07:52)
[2020-02-28] MEDS ORDERED: PROPOFOL 10 MG/ML 20 ML VIAL IV ONE (07:52)
[2020-02-28] MEDS ORDERED: SODIUM CHLORIDE 0.9% 100 ML BAG ONE (07:52)
[2020-02-28] MEDS ORDERED: ceFAZolin 3,000 MG in SODIUM CHLORIDE 0.9% IRRIGATIO 3,000 ML IRRIGATION ONE (07:58)
--- NOTE | 2020-02-28 07:58 | P.ANPRN ---
Procedure Note - Anesthesia - Nerve Block Performed Right Adductor Canal Infusion Time Out Performed: Yes Date of Procedure: 02/28/20 Procedure Start Time: 07:40 Procedure Stop Time: 07:50 Location of Patient: PreOp Indication: Acute Post-Operative Pain, Dx/Pain Location (Right Knee Pain), Requested by Surgeon (Pillo) Sedation Type: Sedate with meaningful contact maintained Preparation: Sterile Prep, Sterile Dressing Position: Supine Catheter: Indwelling Needle Types: Pajunk Needle Gauge: 21 Ultrasound used to visualize needle placement: Yes Ultrasound used to observe medication spread: Yes Injectate: 0.5% Ropivacaine (see comment for volume) (15ml) Blood Aspirated: No Pain Paresthesia on Injection Noted: No Resistance on Injection: Normal Image Stored and Saved: Yes Events: Uneventful and Well Tolerated
[2020-02-28] MEDS ORDERED: ROPIVACAINE 0.2%-NS ON-Q PUMP 1,090 MG, EMPTY PAIN BALL 1 EACH MISCELLANE PRN (08:44)
--- NOTE | 2020-02-28 09:32 | P.OP ---
Date of Procedure: 02/28/20 Procedure(s) Performed: PREOPERATIVE DIAGNOSIS: Right knee severe osteoarthritis with genu varum POSTOPERATIVE DIAGNOSIS: 1. Right knee severe osteoarthritis with genu varum 2. Severe intra-articular synovitis OPERATION: Right knee cemented total replacement arthroplasty with extensive synovectomy ANESTHESIA: Spinal ESTIMATED BLOOD LOSS: EBL 50 ml. FOOD PROCESSOR: Nicole Lo PA-C (assistance with: patient positioning, retraction, exposure, hemostasis, leg positioning, implantation, irrigation, closure, dressing) COMPLICATIONS: None apparent. COMPONENTS IMPLANTED: Journey II BCS total knee system from Salmeron and TCM Bertha, [facility] INDICATIONS: Mrs. Braun is an 84 year old female with a history of right knee osteoarthritis. The patient's knee is end-stage, and conservative management has failed. She has already had the left knee replaced successfully. The operation of right knee replacement has been discussed at length in the office, as well as potential risks and complications. These are inclusive of, but not limited to: bleeding, infection, scarring, discomfort, blood vessel and nerve damage, need for further surgery, failure to relieve symptoms, persistence, recurrence, or worsening of problems, loosening, dislocation, wear, blood clot, pulmonary embolism, , gait dysfunction, stiffness, and other risks as discussed in the office. The patient elects to proceed and the consent form has been signed. PROCEDURE: The patient was taken to the operating room and positioned on the operating room table in the supine position. Anesthesia was initiated. Care was taken to make sure that all pressure points were adequately padded. The operative lower extremity was prepped and draped in the usual aseptic fashion using ChloraPrep. Ioban drape was used for the case and the patient received intravenous antibiotics within one hour of the incision. A pneumotourniquet and leg pierre were used for the case. The limb was exsanguinated with an Esmarch bandage and the tourniquet was inflated to 300 mmHg. Time-out was called confirming the patient's identity, side, procedure and administration of antibiotics and tranexamic acid. The incision was then created midline directly over the right knee, carried down through skin and into the subcutaneous tissues and down to fascia. Full thickness subcutaneous medial flap was developed. Medial parapatellar arthrotomy was performed and the interior of the knee was inspected. There was end-stage arthritis of the knee with a mild to moderate genu varum type deformity. Severe synovitis was noted throughout the anterior compartment of the knee including the suprapatellar pouch. Synovium, where it seemed abundant and inflamed, was removed using cautery dissection. A quantity of what appeared to be amorphous cellular debris which appeared to be very very pale fat-like tissue in consistency was able to be expressed from the deep portion of the suprapatellar pouch. This free tissue was sent to pathology for analysis. There was no evidence of infection or purulent material. The fat pad was excised and proximal medial release on the tibia was completed using meticulous dissection and a curved osteotome. The anterior cruciate ligament was taken down. Note was made of significant attrition of the anterior and significant degenerative appearance of the cruciate ligaments. The exposure was excellent. The knee was flexed 90 degrees and the patella was everted. The Visionaire pre- made distal cutting block was attached and pinned into position. The planned cut was analyzed visually and with the alignment pancho and found to be satisfactory without the need for any adjustment. The oscillating saw was then used to make the distal femoral cut and make the alignment holes for the 5 in 1 block. This cut was confirmed to be flat with the flat end of an osteotome. The 5 in 1 block was then used to create the anterior posterior condylar resections and the chamfer cuts. The retractors were placed around the tibia and the tibial surface was addressed. The Visionaire pre-made guide was placed onto the exposed tibial surface and pinned into position to cassie the rotational alignment. The alignment of the guide was checked for depth of plannned resection, slope, and varus valgus. Guide was confirmed to be in good position and the tibial cut was then created with protection of the posterior neurovascular structures and the collateral ligaments. The tibial cut surface was removed and sized. Spacer block technique was then used to confirm that the flexion and extension gaps were equal. Soft tissue releases and adjustment of the tibial and/or femoral cuts were made, as necessary, until the gaps were equal. This included release of the posterior cruciate ligament, which was excessively tight in this patient. Prior to placing trial components, anesthetic solution consisting of ropivicaine with epinephrine, ketorolac, and clonidine was injected carefully and methodically in a grid pattern using aspiration technique into the soft tissue around the knee circumferentially, starting with the deeper tissues first and progressing to fascia, and then finally the skin/subcutaneous tissue. Particular care was taken when injecting the posterior capsule, with avoidance of the midline posterior area. The trial components were inserted. The tibial tray was allowed to self center and the patella was noted to track very well. The position of the tibial component was marked and noted to be nearly exactly aligned with the pre-drilled holes from the Visionaire guide. The tibia was then finished for a stemmed tibial component. Patellar resurfacing was performed using a reamer. The size of the required patellar component was estimated and the patellar surface was then reamed down to a residual thickness which would recreate the iqugmiut thickness with the component. The exact placement of the patellar component was adjusted for position based on preoperative x-rays and intraoperative findings. Trial components were removed and the cut surfaces of the bone were pulse lavaged thoroughly and dried. Cement was mixed on the back table and applied to the final components. Cement was then applied to the tibial surface and pressurized into the surface using finger pressurization technique. The tibial component was then applied and excess cement was removed after it was impacted securely and noted to be flush with the cut surface. In similar fashion, the cement was applied to the cut femoral surface, pressurized in using finger pressurization and the component was impacted into place. Excess cement was removed. The polyethylene spacer was then implanted and locked into position. The patellar component was then applied in similar technique and a patellar clamp was used to hold the patella in place as the cement hardened. Once the cement had fully hardened, the knee was reinspected. Any other cement extrusion was removed and final kinematic testing showed range of motion from 0 to 130 degrees with excellent stability, both medially and laterally and appropriate alignment of the leg. Patellar tracking was excellent. The knee was then thoroughly pulse lavaged with normal saline. The tourniquet was deflated and hemostasis was obtained with electrocautery and IV tranexamic acid, 1 g given at the start of the operation and 1 g at the start of closure. Closure was with #2 Ethibond in the fascia/capsule and supplemented with #2 Quill, 2-0 Vicryl suture was used for the subcutaneous tissues and 3-0 Quill for the skin. Dermabond/Steri-Strips were then applied. A lightly compressive dressing was applied using Webril and an César wrap. The patient was then transferred to [facility] and taken to the recovery room in stable condition. Sponge and needle counts were correct.
[2020-02-28] MEDS ORDERED: TEMAZEPAM 15 MG CAP PO PRN (09:39)
[2020-02-28] MEDS ORDERED: bisacodyL 10 MG SUPP RECTAL PRN (09:39)
[2020-02-28] MEDS ORDERED: HYDROmorphone 0.5 MG/0.5 ML SYRINGE IVP PRN ×3 (09:39)
[2020-02-28] MEDS ORDERED: MAGNESIUM HYDROXIDE 2,400 MG/10 ML CUP PO PRN (09:39)
[2020-02-28] MEDS ORDERED: NALOXONE 0.4 MG/ML 1 ML VIAL IV PRN (09:39)
[2020-02-28] MEDS ORDERED: NA PHOS,M-B/NA PHOS,DI-BA 133 ML ENEMA RECTAL PRN (09:39)
[2020-02-28] MEDS ORDERED: HYDROcodone/APAP 5-325MG 1 EACH TAB PO PRN ×2 (09:39)
[2020-02-28] MEDS ORDERED: ONDANSETRON 4 MG/2 ML VIAL IVP PRN (09:39)
--- NOTE | 2020-02-28 10:42 | XR ---
EXAMINATION TYPE: XR knee limited RT DATE OF EXAM: 02/28/2020 CLINICAL DATA: 84-year-old female evaluation for postoperative abnormality in alignment, [facility] COMPARISON: None FINDINGS: There is evidence of right total knee arthroplasty. Both distal femoral and proximal tibial components and prosthesis are well seated without periprosthetic fracture. Alignment is grossly nilson omic. Anterior soft tissue swelling with soft tissue air as well as intra-articular air in joint flui d compatible with recent operation. IMPRESSION: Uncomplicated postoperative appearance right total knee arthroplasty.
[2020-02-28] MEDS: LACTATED RINGERS 1,000 ML IV SCH ×2 (11:17→20:38)
[2020-02-28] MEDS: ASPIRIN 81 MG PO SCH (20:38)
[2020-02-28] MEDS ORDERED: SENNOSIDES-DOCUSATE SODIUM 1 EACH TAB PO SCH (21:00)
--- NOTE | 2020-02-29 02:53 | CONS ---
CONSULTATION DATE OF SERVICE: 02/28/2020 REASON FOR CONSULTATION: Advice regarding hypertension and other multiple medical issues requested by Dr. Ferro. HISTORY OF PRESENT ILLNESS: This 84-year-old woman with a past medical history of hypertension, pneumonia, history of rheumatoid factor being followed by Dr. Nadeem Salmeron in the outpatient setting underwent right total knee arthroplasty by Dr. Ferro. The patient tolerated the procedure well and the patient will be closely monitored. There is no history of any fever or rigors. No history of headache, loss of consciousness or seizures at this time. PAST MEDICAL HISTORY: History of hypertension, history of pneumonia, history of rheumatoid arthritis, joint replacement. MEDICATIONS: Home medications are methotrexate 12.5 mg Friday; Norvasc, Cozaar, Antelope, Senokot-S, Mobic, aspirin. Doses are reviewed. ALLERGIES: SULFA. FAMILY HISTORY: History of lung cancer in the family. SOCIAL HISTORY: History of occasional alcohol intake. No history of smoking. REVIEW OF SYSTEMS: ENT: No diminished hearing or diminished vision. CARDIOVASCULAR SYSTEM: No angina. RESPIRATORY SYSTEM: No cough. GI: No nausea. : No dysuria. NERVOUS SYSTEM: No numbness or weakness. ALLERGY/IMMUNOLOGY: No asthma or hayfever. MUSCULOSKELETAL: As mentioned. HEMATOLOGY: No history of anemia. ENDOCRINE: No history of diabetes or hypothyroidism. CONSTITUTIONAL: As mentioned earlier. DERMATOLOGY: Negative. RHEUMATOLOGY: Negative. PSYCHIATRY: As mentioned earlier. PHYSICAL EXAMINATION: The patient is alert and oriented x3. Pulse 72, blood pressure 105/68, respirations 14, temperature 97.9, pulse ox 98% on room air. HEENT: Conjunctivae normal. NECK: No jugular venous distention. CARDIOVASCULAR: S1, S2 muffled. RESPIRATORY: Breath sounds diminished at the bases. No rhonchi, no crackles. ABDOMEN: Soft, nontender. No mass palpable. LEGS: Status post surgery. NERVOUS SYSTEM: Higher function mentioned earlier. Moves all 4 limbs. No focal motor or sensory deficits. LYMPHATICS: No lymphadenopathy of the neck, axillae or groin. SKIN: No ulcer, rash or bleeding. JOINTS: As mentioned earlier. LAB: The preop labs: The CBC was within normal limits. Coags are normal. Chemistry showed sodium 136. ASSESSMENT: 1. Status post right total knee arthroplasty. 2. Mild hyponatremia in the previous preop labs. 3. Hypertension. 4. History of pneumonia. 5. History of rheumatoid arthritis. 6. History of degenerative joint disease. 7. FULL CODE. RECOMMENDATIONS AND DISCUSSION: This 84-year-old woman presented with multiple complex medical issues, we will monitor the patient closely. Continue the current medications. Continue symptomatic treatment. I recommend resume the home medications and repeat basic labs tomorrow before discharge and continue to monitor. Incentive spirometry. DVT prophylaxis. Resume the rest of medications and patient may be asked to follow up with Dr. Baptiste closely after discharge. Thank you Dr. Ferro for letting us participate in the care of this patient. MMODL / IJN: [id number] /
[2020-02-29] MEDS: LACTATED RINGERS 1,000 ML IV SCH ×2 (05:20→08:16)
--- NOTE | 2020-02-29 05:32 | P.PN ---
Progress Note - Text Progress Note Date: 02/29/20 84-year-old female status post right total knee arthroplasty. Patient had right adductor canal catheter placed. Patient is ambulating, doing well, pain is a 2 out of 10 in severity. On-Q site looks clean dry and intact. Overall doing well.
[2020-02-29 06:30] LABS: Basophils % (A) 0 %; Eosinophils % (A) 0 %; HGB 10.2 gm/dL (11.4-16.0); Hypochromasia Slight; Lymphocytes # (A) 0.6 k/uL (1.0-4.8); Lymphocytes % (A) 6 %; MCH 26.6 pg (25.0-35.0); MCHC 31.8 g/dL (31.0-37.0); MCV 83.5 fL (80.0-100.0); Mean Platelet Volume 6.4; Monocytes # (A) 0.7 k/uL (0-1.0); Monocytes % (A) 7 %; Neutrophils # (A) 9.1 k/uL (1.3-7.7); Neutrophils % (A) 86 %; Platelet Count 381 k/uL (150-450); RBC 3.83 m/uL (3.80-5.40); RDW 15.9 % (11.5-15.5); WBC 10.6 k/uL (3.8-10.6)
[2020-02-29] MEDS: ASPIRIN 81 MG PO SCH (08:45)
[2020-02-29] MEDS ORDERED: amLODIPine 10 MG TAB PO SCH (09:00)
[2020-02-29] MEDS ORDERED: LOSARTAN 50 MG TAB PO SCH (09:00)
[2020-02-29] MEDS ORDERED: MELOXICAM 7.5 MG TAB PO SCH (09:00)
[2020-02-29 09:21] LABS: African American GFR (CKD) 93.5 (60.0-200.0); BUN/Creat Ratio 31.43 Ratio (12.00-20.00); Calcium 9.3 mg/dL (8.7-10.3); Non-African American GFR(CKD) 80.7 (60.0-200.0); Potassium 4.2 mmol/L (3.5-5.5)
[2020-02-29 11:01] VITALS: BMI 23.8
--- NOTE | 2020-02-29 13:52 | P.DS ---
Providers Expected date of discharge: 02/29/20 Attending physician: Tesfaye Ferro Consults: 02/28/20 09:39 Consult Physician Routine Consulting Provider: Mercedes Zaman Consult Reason/Comments: Medical management Do you want consulting provider notified?: Yes Primary care physician: Nadeem Salmeron MD - Discharge Diagnosis(es) (1) Osteoarthritis of right knee Current Visit: Yes Status: Acute (2) Status post total right knee replacement Current Visit: Yes Status: Acute Hospital Course: Mrs. Braun is an 84 year old female with a history of right knee osteoarthritis. The patient's knee is end-stage, and conservative management has failed. She has already had the left knee replaced successfully. The operation of right knee replacement has been discussed at length in the office, as well as potential risks and complications. These are inclusive of, but not limited to: bleeding, infection, scarring, discomfort, blood vessel and nerve damage, need for further surgery, failure to relieve symptoms, persistence, recurrence, or worsening of problems, loosening, dislocation, wear, blood clot, pulmonary embolism, , gait dysfunction, stiffness, and other risks as discussed in the office. The patient elects to proceed and the consent form has been signed. The patient is admitted to [facility] on 02/28/2020 for Total Right Knee Arthroplasty. The procedure is performed without complication or sequelae. She is doing well on POD #1. Vital signs and labs are stable. The patient is discharged in good condition on POD #1. Please see med rec for accurate list of discharge meds. Plan - Discharge Summary Discharge Rx Participant: Yes New Discharge Prescriptions: New Aspirin [Adult Low Dose Aspirin EC] 81 mg PO BID #1 tablet. Meloxicam [Mobic] 1 - 2 tab PO DAILY PRN #30 tab PRN Reason: Pain Sennosides-Docusate Sodium [Senokot-S] 1 tab PO BID #60 tablet No Action metHOTREXate sodium [Methotrexate] 12.5 mg PO SA amLODIPine [Norvasc] 10 mg PO DAILY Losartan [Cozaar] 50 mg PO DAILY Hydrocodone/Acetaminophen [[place] 5-325] 1 tab PO Q8H PRN #28 tab PRN Reason: Pain Discharge Medication List amLODIPine [Norvasc] 10 mg PO DAILY 04/27/18 [History] metHOTREXate sodium [Methotrexate] 12.5 mg PO SA 04/27/18 [History] Losartan [Cozaar] 50 mg PO DAILY 11/04/19 [History] Hydrocodone/Acetaminophen [[place] 5-325] 1 tab PO Q8H PRN #28 tab 11/09/19 [Rx] Aspirin [Adult Low Dose Aspirin EC] 81 mg PO BID #1 tablet. 02/28/20 [Rx] Meloxicam [Mobic] 1 - 2 tab PO DAILY PRN #30 tab 02/28/20 [Rx] Sennosides-Docusate Sodium [Senokot-S] 1 tab PO BID #60 tablet 02/28/20 [Rx] Follow up Appointment(s)/Referral(s): Nicole Lo PAC [PHYSICIAN [employer]FUELS ENGINEERING MANAGER] - 03/17/20 9:00 am Nadeem Salmeron MD [Primary Care Provider] - 03/08/20 12:45 pm Activity/Diet/Wound Care/Special Instructions: May bear weight as tolerated with walker. May shower 48h post op. Leave Optifoam dressing intact 7-10 days. Attend outpatient physical therapy as set up prior to surgery on 03/03/2020 at [facility]. The patient has pain meds at home.
[2020-02-29 15:00] VITALS: BP 134/72; PULSE 79; RESP 16; TEMP 97.7
--- NOTE | 2020-02-29 15:57 | PN ---
PROGRESS NOTE DATE OF SERVICE: 02/29/2020 This 84-year-old woman who was admitted after right total knee arthroplasty is improving significantly. No chest pain. No palpitations. Sodium is normal at this time. PHYSICAL EXAMINATION: Alert and oriented x3. Pulse is 73, blood pressure 152/78, respirations 17, temperature 98.4, pulse ox 99% on room air. HEENT: Conjunctivae normal. NECK: No jugular venous distention. CARDIOVASCULAR SYSTEM: S1, S2 muffled. RESPIRATORY SYSTEM: Breath sounds diminished at the bases. No rhonchi. No crackles. ABDOMEN: Soft. LEGS: Status post surgery. NERVOUS SYSTEM: No focal deficit. LABS: Hemoglobin 10.2, sodium 137, glucose 115. ASSESSMENT: 1. Status post right total knee arthroplasty. 2. Mild hyponatremia on preoperative labs, improved. 3. Hypertension. 4. History of pneumonia. 5. History of rheumatoid arthritis. 6. History of degenerative joint disease. 7. FULL CODE. RECOMMENDATIONS AND DISCUSSION: I recommend to continue current medications, continue with the monitoring, symptomatic treatment. Resume the home medications. DVT prophylaxis. Orthopedic Surgery to follow. Follow closely with primary physician in the outpatient setting. Further recommendations to follow. MMODL / IJN: [id number] /
== END 2020-02-29 14:58 | disposition home health service (06) ==
LOC: OR 06:05 → 4SSUR 09:41 → OR 02-29 14:58
PROVIDERS: ATTEND Orthopaedic Surgery
DX: M17.11 Unilateral primary osteoarthritis, right knee (principal); M21.161 Varus deformity, not elsewhere classified, right knee; M65.861 Other synovitis and tenosynovitis, right lower leg; M06.9 Rheumatoid arthritis, unspecified; I10 Essential (primary) hypertension; E87.1 Hypo-osmolality and hyponatremia; Z88.2 Allergy status to sulfonamides; Z79.82 Long term (current) use of aspirin; Z79.1 Long term (current) use of non-steroidal anti-inflammatories (NSAID); Z79.899 Other long term (current) drug therapy; Z97.3 Presence of spectacles and contact lenses; Z87.01 Personal history of pneumonia (recurrent); Z96.652 Presence of left artificial knee joint; Z80.1 Family history of malignant neoplasm of trachea, bronchus and lung
CPT/HCPCS: 97116; 97110; 97161; 64448; 76942; 88305; 80048; 85025; 88300; 73560; 27447; C1713; C1776; J2250; J0171; J1100; J0690 ×3; J2405; J3010; J1885; J2795 ×2; J2704; J0735

== ENCOUNTER → 2024-01-08 | Outpatient (CLI) | payer MEDICARE ==
--- NOTE | 2024-01-27 16:31 | MR ---
Patient: Raegan Braun L Ordering Physician: Unknown, Unknown ID: [id number] Phone, Pager: Phone: N/ A Pager: N/A : [phone] Age/Gender: 88Y, F Primary Location: N/A Procedure: MR brain/orbits wo/w con Study Date: 01/08/2024 2:48:57 PM EXAMINATION TYPE: MR brain/orbits wo/w con DATE OF EXAM: 01/12/2024 12:59 PM CLINICAL INDICATION: Left eye double vision COMPARISON: None. TECHNIQUE: Multi planar, multi sequence imaging was performed through the orbits/face. Post contrast imaging was performed after the administration of 6 cc Gadavist intravenously. FINDINGS, ORBITS: The globes appear symmetrical. Orbital contents are intact. Signal intensity of th e optic nerves are within normal limits. The intraorbital fat appears preserved. Both lacrimal glan ds are unremarkable. The extraocular muscles appear symmetric. After administration of contrast, no a bnormal enhancement is seen. FINDINGS, BRAIN: The minor-white junctions, ventricular system, and cisterns do appear unremarkable. Diffusion-weighted imaging shows no evidence of restricted diffusion. Patchy areas of high T2 signa l intensity are seen within the periventricular white matter. Cavernous sinus is within normal limit s. After administration of contrast, no abnormal enhancement is seen within the brain. The bone marrow signal is within normal limits. Paranasal sinuses and mastoid air cells: No significant paranasal sinus disease. Visualized orbits: Orbital contents are intact. IMPRESSION: 1. No evidence of intraorbital mass or significant abnormality. 2. No evidence of intracranial mass nor acute/subacute CVA accident. 3. Nonspecific extensive white matter changes are identified likely small vessel ischemic disease.
== END | disposition home or self-care (01) ==
LOC: RADMRIMAIN 15:30
PROVIDERS: ATTEND Psychiatry & Neurology Neurology
DX: R90.82 White matter disease, unspecified (principal); H53.2 Diplopia
CPT/HCPCS: 70543; 70553; A9585